=== PATIENT | female | born 1990 | race Caucasian/White ===

== ENCOUNTER 2018-07-01 07:14 | Inpatient (IN) | payer BC ==
[2018-07-01] VITALS (41 sets, daily range): BP systolic 100–139; BP diastolic 55–93; PULSE 50–96; TEMP 97.5–99.8
[~2018-07-01] VITALS: Ht 170.2 cm; Wt 80.5 kg
[~2018-07-01 07:14] MED LIST: GENTAMICIN EYE D5 ML OD
--- NOTE | 2018-07-01 07:20 | NUR ---
Patient ambulatory to LR6 with spouse, changed into gown and FHR/TOCO monitor placed and explained. Patient states that "around 0530 she heard a small pop in stomach and noticed fluid discharge, put a pad on and continued to leak/pink tinged/clear, started having back pain/contractions soon after, and were about every [address]" 0730: SVE- 2/75/-2 and amniotest positive and clear fluid noted. Dr. Howard notified and orders to admit. 0800: IV started in left forearm, Blood drawn and sent to lab, LR bolus started. Plan of care discussed, consents gone over and signed, packet given.
--- NOTE | 2018-07-01 07:35 | NUR ---
FHR tracing maternal heart rate at this time. 0800: Dr. Howard at bedside assessing patient and reviewing FHR strip. Orders for patient to do intermittent monitoring and patient can walk around. 0817: Patient off monitor to ambulate halls. 0853: Patient back on monitor. 0925: Patient requesting epidural and Festus GOLF BALL WINDER called and notified. Patient off monitor to ambulate and sit on birthing ball. 0943: Festus [employer] W[employer]ER at bedside and patient sat up for epidural. FHR difficult to trace due to maternal position. 0949: Test dose given and patient tolerates well. 0954: Patient repositioned and becoming more comfortable. 0955: FHR tracing maternal heart rate. 0959: FHR tracing maternal heart rate and monitor adjusted.
[2018-07-01] MEDS ORDERED: MIRALAX PA17 GM/Dose PO (07:55)
[2018-07-01] MEDS ORDERED: PRENATAL MVI (07:55)
[2018-07-01 09:09] LABS: BASO % 0.2 % (0.0-2.0); EOS # 0.1 (0.0-0.7); EOS % 1.7 % (0-4.0); GRAN # 5.7 (1.4-6.5); GRAN % 67.4 % (42.2-75.2); HEMOGLOBIN 13.2 g/dl (12.5-16.0); LYMPH # 1.6 (1.2-3.4); LYMPH % 18.8 % (20.0-51.0); MEAN CELL VOLUME 89 fl (80.0-100.0); MEAN CORPUSCULAR HEMOGLOBIN 32 pg (27.0-31.0); MEAN CORPUSCULAR HGB CONC 36 g/dl (33.0-37.0); MEAN PLATELET VOLUME 10.8 fl (7.4-10.4); MONO # 0.9 (0.1-0.6); MONO % 11.1 % (1.7-9.3); PLATELET COUNT 225 K/mm3 (130-400); RED BLOOD COUNT 4.14 M/mm3 (4.10-5.30); REDCELL DISTRIBUTION WIDTH-CV 12.5 % (11.5-14.5)
[2018-07-01 09:13] LABS: HEMATOCRIT 36.8 % (37.0-47.0)
--- NOTE | 2018-07-01 10:35 | NUR ---
1035: Elizabeth catheter replaced and patient tolerates well. SVE-3-4/80/-2 1040: FHR tracing maternal heart rate, monitor adjusted.
--- NOTE | 2018-07-01 11:30 | NUR ---
Dr. Howard at bedside and assessing patient and FHR strip. SVE per physician-/- and orders to start pitocin at this time. Pitocin started per protocol at 2mU.
--- NOTE | 2018-07-01 12:50 | NUR ---
Dr. Howard at bedside and assessing patient/FHR strip. SVE-6/100/+1 and orders to continue increasing pitocin.
--- NOTE | 2018-07-01 12:53 | NUR ---
Patient repositioning and FHR decreasing to 90bpm but returns to baseline quickly. Will continue to monitor.
--- NOTE | 2018-07-01 16:15 | NUR ---
SVE-10/100/+2 per physician and orders to begin charting. 1625: Patient begins to push with each contraction. FHR tracing maternal heart rate intermittently and showing variable deceleration. 1630: FHR increasing to 170-180bpm. 1640: Orders from Dr. Howard to stop pushing at this time, due to surgery and let baby recover from high baseline. Patient repositioned and comfortable.
--- NOTE | 2018-07-01 17:10 | NUR ---
Dr. Howard at bedside and orders to start pushing again. 1715: Patient begins to push with each contraction. Elizabeth catheter removed and patient tolerates well.
--- NOTE | 2018-07-01 17:45 | NUR ---
Dr. Howard at bedside and begins pushing with patient. FHR showing recurrent variable decelerations. 175: Bed taken apart and patient set up for vaginal delivery. 1756: Spontaneous vaginal delivery of head followed by body, bulb syringed and to patient abdomen where Rodolfo RN assumes care if infant. Pitocin paused. Cord clamped by physician and cut by FOB. Cord blood obtained. 1757: Spontaneous delivery of placenta and pitocin bolus started per protocol. Fundal massage done, atony noted, moderate bleeding, Physician orders methergine IM. 1801: Methergine given IM in left thigh. Dr Howard repairs laceration. Fundal massage done, Firm, Bleeding WNL. Patient repositioned, ice pack to perineum, plan of care discussed and will continue to monitor.
--- NOTE | 2018-07-01 21:00 | NUR ---
Pt able to lift and hold both legs off of bed for 5 seconds. Pt positioned to edge of bed. Epidural catheter removed at this time. Tip blue, round, and intact. Pt tolerated well. Pt able to ambulate to bathroom with standby assist. Pt void 700 mL. Pericare provided and explained. New gown on. Mesh panties and pad applied. Pt ambulated to nursery independently.
[2018-07-02 00:33] VITALS: BP 122/44; PULSE 53; TEMP 97.5
[2018-07-02 05:00] VITALS: BP 112/63; PULSE 51; TEMP 97.5
[2018-07-02 09:30] VITALS: BP 122/60; PULSE 63; TEMP 97.4
--- NOTE | 2018-07-02 10:41 | NUR ---
Patient was indisposed. The baby was having a hearing test.
[2018-07-02 15:41] VITALS: BP 124/76; PULSE 53; TEMP 97.7
--- NOTE | 2018-07-02 19:00 | NUR ---
Pt did not want bedside report. Report received from off going RN. Care taken over by this RN.
[2018-07-02 20:25] VITALS: BP 122/78; PULSE 47; TEMP 97.5
[2018-07-03 08:00] VITALS: BP 138/72; PULSE 52; TEMP 97.7
[2018-07-03] MEDS ORDERED: IBU800 M1 PO (08:20)
[2018-07-03] MEDS ORDERED: PERCOCET 325 MG1 TA2 PO (08:20)
== END 2018-07-03 10:30 | disposition home or self-care (01) | DRG 807 ==
LOC: LDRO 07:14 → LDR 07:35 → OB 21:30
PROVIDERS: Obstetrics & Gynecology; ADMIT Obstetrics & Gynecology
PROC: 10E0XZZ Delivery of Products of Conception, External Approach (ICD-10-PCS; principal; 2018-07-01)
PROC: 0KQM0ZZ Repair Perineum Muscle, Open Approach (ICD-10-PCS; 2018-07-01)
DX: O70.1 Second degree perineal laceration during delivery (principal); Z37.0 Single live birth; Z3A.40 40 weeks gestation of pregnancy; O99.344 Other mental disorders complicating childbirth; F41.9 Anxiety disorder, unspecified; O75.89 Other specified complications of labor and delivery
CPT/HCPCS: J2210; J2590; J7120

== ENCOUNTER → 2018-07-12 | Outpatient (CLI) | payer BC ==
[~2018-07-12] MED LIST changes: +IBU800 M1 PO; +MIRALAX PA17 GM/Dose PO; +PERCOCET 325 MG1 TA2 PO; +PRENATAL MVI
--- NOTE | 2018-07-12 11:40 | NUR ---
Mohsen Ramos into clinic with 11 day old Sawyer for evaluation and weight check. Mohsen reports Sawyer is nursing approx 8 times per day and output is WNL. Mohsen states she has started pumping after feeds and notes she has been able to pump 30 mls from each breast the last day, an increase from 0.25 mls she was pumping. Sawyer's weight on 07/01/18 was 8 # 7.3 oz (3835 g) and discharge weight on 07/03/18 was 7 # 14.8 oz (3595 g). Today, Sawyer's prefeed weight was 8# 2.1 oz ( 3688 g), 3 % below weight. Sawyer gained 72 g after nursing from each breast and nursed approx a total of 30 min. Sawyer was very sleepy throughout the feed and had to be stimulated to remain awake throughout the feeding. Mohsen states she is below her prepregnancy weight. Information given on eating to maintain quality milk supply. POC: Continue to feed ad shalonda, pump after feeding as desired to continue to increase supply. Continue to monitor weight gain. Anticipate return to clinic for follow up. Mohsen will increase protien/food intake to support maintaining milk supply.
== END ==
LOC: LAC 10:25
DX: Z39.1 Encounter for care and examination of lactating mother (principal); Z71.89 Other specified counseling

== ENCOUNTER 2019-10-03 15:56 | Outpatient (CLI) | payer BC ==
[~2019-10-03] VITALS: Ht 172.7 cm; Wt 77.7 kg
[2019-10-03 16:05] VITALS: BP 141/85; PULSE 53; TEMP 98.7
[2019-10-03 16:10] VITALS: BP 141/85; PULSE 53; TEMP 98.7
[2019-10-03 17:07] VITALS: BP 125/79; PULSE 50
--- NOTE | 2019-10-03 17:07 | NUR ---
1700 DR PORRAS REVIEWED MONITOR STRIP AND ORDERS TO DISMISS TO HOME. ALL DISCHARGE INSTRUCTIONS GIVEN WITH VERBAL UNDERSTANDING NOTED.
== END 2019-10-03 17:09 | disposition home or self-care (01) ==
LOC: LDRO 15:56
DX: O26.893 Other specified pregnancy related conditions, third trimester (principal); Z3A.37 37 weeks gestation of pregnancy

== ENCOUNTER 2019-10-19 07:04 | Inpatient (IN) | payer BC ==
[2019-10-19] VITALS (25 sets, daily range): BP systolic 103–147; BP diastolic 50–84; PULSE 38–65; TEMP 97.6–98.2
[~2019-10-19] VITALS: Ht 170.2 cm; Wt 78.6 kg
--- NOTE | 2019-10-19 07:10 | NUR ---
Patient ambulatory to LR1 with spouse, changed into gown, FHR/TOCO monitors placed and explained. Patient denies any regular contractions/vaginal bleeding/leaking of fluid/decreased movement. Plan of care discussed and questions answered. 0730: IV started in right upper arm, blood obtained and to lab, LR infusing. Consents signed/assessment completed/ packet given
[2019-10-19 08:24] LABS: BASO % 0.4 % (0.0-2.0); EOS # 0.2 (0.0-0.7); EOS % 1.8 % (0-4.0); GRAN % 59.3 % (42.2-75.2); HEMATOCRIT 41.2 % (37.0-47.0); HEMOGLOBIN 14.3 g/dl (12.5-16.0); LYMPH # 2.3 (1.2-3.4); LYMPH % 27.3 % (20.0-51.0); MEAN CELL VOLUME 91 fl (80.0-100.0); MEAN CORPUSCULAR HEMOGLOBIN 32 pg (27.0-31.0); MEAN CORPUSCULAR HGB CONC 35 g/dl (33.0-37.0); MEAN PLATELET VOLUME 10.6 fl (7.4-10.4); MONO # 0.9 (0.1-0.6); MONO % 10.4 % (1.7-9.3); PLATELET COUNT 272 K/mm3 (130-400); RED BLOOD COUNT 4.53 M/mm3 (4.10-5.30)
--- NOTE | 2019-10-19 08:30 | NUR ---
FHR baseline 115-120bpm with moderate variability. 0852: Dr Ruffin at bedside assessing patient and FHR strip. 0855: SVE per physician /-2 and AROM at this time with clear fluid noted. No new orders at this time
--- NOTE | 2019-10-19 10:15 | NUR ---
Patient requests epidural and Rowena CHANDLER at nurses station and notified. 1025: Patient sits up on edge of bed and Rena Castañeda CRNA at bedside for placement of epidural. Difficulty tracing FHR due to maternal position. 1034: Test dose given and patient tolerates well. 1038: Patient repositioned and wedged right. Safety precautions gone over and plan of care discussed. 1100: Variable decelerations noted. SVE-/-1. Dr. Ruffin updated. 1115: Recurrent variable decelertions decreasing to 65bpm and returns to baseline spontaneously. Dr. Ruffin at bedside and SVE per physicain /-1. Patient left lateral with right leg resting in stirrup. 1145: Elizabeth catheter placed and patient tolerates well. 1148: SVE-10/100/0 1150: FHR baseline 115bpm and recurrent early decelerations noted. 1155: Dr. Ruffin called for delivery and notified nurse. 1210: Elizabeth catheter removed.
--- NOTE | 2019-10-19 12:12 | NUR ---
Dr. Ruffin at bedside and patient prepped for vaginal delivery. Bed taken apart and pericare done. 1218: Patient begins to start pushing with contractions. 1221: Spontaneous vaginal delivery of viable male-head followed by body. Pitocin paused. bulbed syringed and to patients abdomen. Cord clamped by physician and cut by FOB. Cord blood obtained. 1226: Spontaneous delivery of placenta and pitocin bolus started at 333mU per protocol. Dr. Ruffin repairs laceration. Fundal massage done/firm/bleeding WNL. Pericare done/ice pack to perineum/patient repositioned. Plan of care discussed.
[2019-10-20 01:40] VITALS: BP 123/75; PULSE 51; TEMP 98.2
[2019-10-20 07:46] VITALS: BP 131/77; PULSE 44; TEMP 97.3
[2019-10-20] MEDS ORDERED: MOTRIN 800800 MG/TAB PO (08:42)
[2019-10-20] MEDS ORDERED: ZOLOFT 50MG50 MG PO (08:43)
--- NOTE | 2019-10-20 13:45 | NUR ---
Discharge instructions given, pt verbalizes understanding. No further questions noted. Bands matched and hugs tag removed.
== END 2019-10-20 14:15 | disposition home or self-care (01) | DRG 807 ==
LOC: LDR 07:04 → OB 12:36
PROVIDERS: ADMIT Student in an Organized Health Care Education/Training Program
PROC: 10E0XZZ Delivery of Products of Conception, External Approach (ICD-10-PCS; principal; 2019-10-19)
PROC: 3E033VJ Introduction of Other Hormone into Peripheral Vein, Percutaneous Approach (ICD-10-PCS; 2019-10-19)
PROC: 10907ZC Drainage of Amniotic Fluid, Therapeutic from Products of Conception, Via Natural or Artificial Opening (ICD-10-PCS; 2019-10-19)
PROC: 0HQ9XZZ Repair Perineum Skin, External Approach (ICD-10-PCS; 2019-10-19)
DX: O99.344 Other mental disorders complicating childbirth (principal); Z37.0 Single live birth; Z3A.39 39 weeks gestation of pregnancy; O76 Abnormality in fetal heart rate and rhythm complicating labor and delivery; O70.0 First degree perineal laceration during delivery
CPT/HCPCS: J2590; J7120

== ENCOUNTER 2022-07-28 19:14 | Outpatient (CLI) | payer BC, OTHER ==
[~2022-07-28] VITALS: Ht 170.2 cm; Wt 78.2 kg
[~2022-07-28 19:14] MED LIST changes: +MOTRIN 800800 MG/TAB PO; +ZOLOFT 50MG50 MG PO
--- NOTE | 2022-07-28 19:25 | NUR ---
G3L2 at 35 weeks gestation arrives to unit with complaint of decreased movement and miah garcias contractions. Pt reports feeling off for most of the day and has not felt movement like she usually does. Pt states at times she has had pretty frequent contrations but was not timing them. Pt states she has been well hydrated today. Denies loss of fluid or vaginal bleeding. Clean gown on. Pt oriented to room, call light within reach, bed in low and locked position. US and toco explained and applied. Vitals obtained. Admission assessment started. SVE 140/-2, membranes intact.
[2022-07-28 19:45] VITALS: BP 150/76; PULSE 54; TEMP 98.4
[2022-07-28 20:15] VITALS: BP 120/68; PULSE 54
--- NOTE | 2022-07-28 20:40 | NUR ---
Pt reports feeling much more movement now. Category 1 FHR tracing obtained. Mayo shows contractions about every 3-4 minutes, pt states she feels them but they feel like tightening and don't feel like labor contractions. Pt states she just wanted to make sure baby was ok and is wanting to be discharged home. SVE - unchanged from previous exam.
[2022-07-28 21:00] VITALS: BP 116/60; PULSE 53
--- NOTE | 2022-07-28 21:05 | NUR ---
Discharge instructions and return precautions reviewed with patient, verbalized understanding. Pt seen ambulating off unit with spouse in stable condition.
[2022-07-28] MEDS ORDERED: NATURAL MAGNES200 MG PO (21:13)
== END 2022-07-28 21:05 | disposition home or self-care (01) ==
LOC: LDRO 19:14
DX: O36.8130 Decreased fetal movements, third trimester, not applicable or unspecified (principal); Z3A.35 35 weeks gestation of pregnancy

== ENCOUNTER 2022-09-03 06:02 | Inpatient (IN) | payer BC, OTHER ==
[~2022-09-03] VITALS: Ht 170.2 cm; Wt 78.5 kg
[2022-09-03] VITALS (25 sets, daily range): BP systolic 88–120; BP diastolic 49–82; PULSE 46–77; TEMP 97.7–98.6
[~2022-09-03 06:02] MED LIST changes: +NATURAL MAGNES200 MG PO
[2022-09-03 07:31] LABS: BASO % 0.4 % (0.0-2.0); EOS # 0.1 K/mm3 (0.0-0.7); GRAN % 73.5 % (42.2-75.2); HEMATOCRIT 51.1 % (37.0-47.0); LYMPH # 0.9 K/mm3 (1.2-3.4); LYMPH % 16.1 % (20.0-51.0); MEAN CELL VOLUME 88 fl (80.0-100.0); MEAN CORPUSCULAR HEMOGLOBIN 32 pg (27-31); MEAN CORPUSCULAR HGB CONC 36 g/dl (33.0-37.0); MEAN PLATELET VOLUME 9.7 fl (7.4-10.4); MONO # 0.4 K/mm3 (0.1-0.6); MONO % 7.4 % (1.7-9.3); PLATELET COUNT 139 K/mm3 (130-400); REDCELL DISTRIBUTION WIDTH-CV 12.4 % (11.5-14.5)
[2022-09-03 07:33] LABS: HEMOGLOBIN 18.4 g/dl (12.5-16.0)
--- NOTE | 2022-09-03 08:40 | NUR ---
0840 DR. PORRAS IN ROOM FOR SVE AND AROM. SVE 4/-2, AROM NOTED DURING EXAM. MODERATE AMOUNT CLEAR FLUID. PT TOLERATED WELL. EFM TRACING CAT 1.
--- NOTE | 2022-09-03 10:20 | NUR ---
1020 ERIC CHANDLER IN ROOM FOR EPIDURAL PLACEMENT. BOLUS INFUSING PER PROTOCOL. PULSE OX IN PLACE. PT SITTING ON EDGE OF BED. VS STABLE. EFM TRACING CAT 1. 1028 TEST DOSE ADMINISTERED PER RAMESH REYES. PT TOLERATED WELL. 1035 PT BACK IN BED LEFT LATERAL. EFM TRACING CAT 1. VITAL SIGNS STABLE. PT REPORTED RECTAL PRESSURE. 1046 PT MORE COMFORTABLE. SVE AT THIS TIME /-2.
--- NOTE | 2022-09-03 11:03 | NUR ---
1103 PT STILL FEELING STRONG RECTAL PRESSURE. SVE AT THIS TIME /-1. PT TOLERATED WELL. EFM TRACING CAT 1.
--- NOTE | 2022-09-03 11:46 | NUR ---
1146 DR. PORRAS ON UNIT FOR SVE AND DELIVERY. SVE AT THIS TIME COMPLETE, +2 STATION. ROOM SET FOR DELIVERY, APPROPRIATE STAFF NOTIFIED. 1200 DR. PORRAS DRAINED BLADDER WITH STRAIGHT CATHETER. PT BEGAN PUSHING. GOOD MATERNAL EFFORT. 1207 OF VIABLE MALE INFANT PER DR. PORRAS. PLACED ON MATERNAL ABDOMEN AND CARE GIVEN TO MARCELO ALANIZ RN. BOBBY VALENZUELA. VITAL SIGNS STABLE. [address] PORRAS. PT TOLERATED WELL. LOCHIA WNL, FUNDUS FIRM. VS STABLE. PITOCIN BOLUS INFUSING PER PROTOCOL. 1215 ROOM PUT BACK TOGETHER. BABY SKIN TO SKIN WITH PT. VS STABLE.
--- NOTE | 2022-09-03 15:10 | NUR ---
PT CHANGED INTO NEW GOWN, UNDERWEAR, AND PAD. RIGHT LEG STILL NUMB. CATHERINE STEADY USED FOR TRANSFER TO ROOM. DID NOT ATTEMPT TO VOID AT THIS TIME. HANDING PT OFF TO GERARDO MILLAN.
--- NOTE | 2022-09-03 16:04 | NUR ---
1545 THIS NURSE RECEIVED REPORT FROM CORRIE UMANA AND ASSUMED CARE AT THIS TIME.
--- NOTE | 2022-09-03 20:44 | NUR ---
PT DENIES PAIN AND IS NOT WANTING TO TAKE ANY MEDICATION. THIS RN REMINDED MOM OF THE AFTER-PAINS AND THE CRAMPING THAT MAY OCCUR WITH BRSTFEEDING HER 3RD CHILD.
[2022-09-04 03:00] VITALS: BP 107/62; PULSE 62; TEMP 98.2
--- NOTE | 2022-09-04 06:10 | NUR ---
This nurse received report from Jeanna Moreira RN. Pt is WNL, voids completed, needs BC done, needs consent form for circumcision on pt baby done, and would like to DC at 24 hours. This nurse assumes care from Jeanna Moreira RN.
[2022-09-04 07:00] VITALS: BP 106/62; PULSE 42; TEMP 97.6
[2022-09-04] MEDS ORDERED: IBU800 M1 PO (08:23)
--- NOTE | 2022-09-04 08:59 | NUR ---
Initial visit; Mom thanked Electric [employer]cker for offering congratulations and God's blessings for the of her son. Electric Trucker thanked mom for choosing [facility].
--- NOTE | 2022-09-04 10:16 | NUR ---
Pt attempting to breastfeed during this nurses hourly round. Pt refused medication. Hearing personnel for pt baby at pt door. Questions, concerns, and needs encouraged. Pt verbalized understanding and agreement of POC with "no" questions, concerns, or needs.
[2022-09-04 11:00] VITALS: BP 107/65; PULSE 56; TEMP 97.5
--- NOTE | 2022-09-04 14:31 | NUR ---
Pt and pt spouse educated on DC POC. Health summary, DC summary, and goodie bag given to pt. Pt and pt spouse educated on keeping/scheduling appointments, vaginal care instructions, abnormal bleeding, depression and psychosis, and interventions. Questions, concerns, and needs encouraged. Pt verbalized understanding and agreement of DC POC with "no" questions, concerns, or needs.
--- NOTE | 2022-09-04 15:12 | NUR ---
Pt ambulating off unit with belongings in tow, accompanied by this nurse and pt spouse holding pt baby in carseat at 1512.
== END 2022-09-04 15:12 | disposition home or self-care (01) | DRG 807 ==
LOC: LDR 06:02 → OB 13:06
PROVIDERS: ADMIT Student in an Organized Health Care Education/Training Program
PROC: 10E0XZZ Delivery of Products of Conception, External Approach (ICD-10-PCS; principal; 2022-09-03)
PROC: 3E033VJ Introduction of Other Hormone into Peripheral Vein, Percutaneous Approach (ICD-10-PCS; 2022-09-03)
DX: O99.344 Other mental disorders complicating childbirth (principal); Z37.0 Single live birth; F41.9 Anxiety disorder, unspecified; O48.0 Post-term pregnancy; O35.09X0 Maternal care for (suspected) other central nervous system malformation or damage in fetus, not applicable or unspecified; O43.93 Unspecified placental disorder, third trimester; O35.EXX0 Maternal care for other (suspected) fetal abnormality and damage, fetal genitourinary anomalies, not applicable or unspecified; Z3A.40 40 weeks gestation of pregnancy
CPT/HCPCS: J2590; J2795; J7120